=== PATIENT | male | born 1980 | race African-American/Black ===

== ENCOUNTER 2018-04-08 10:34 | Emergency (ER) | END 2018-04-08 13:03 | disposition home or self-care (01) ==

== ENCOUNTER 2018-04-25 11:29 | Emergency (ER) | END 2018-04-25 14:10 | disposition home or self-care (01) ==

== ENCOUNTER 2018-05-20 17:55 | Emergency (ER) | END 2018-05-20 19:46 | disposition home or self-care (01) ==

== ENCOUNTER → 2018-08-03 | Emergency (ER) | payer OTHER ==
[~2018-08-03] VITALS: Ht 182.9 cm; Wt 91.8 kg
[~2018-08-03] MED LIST: PRED20TA PO; predniSONE 20 MG TAB PO ONE
[2018-08-03 20:51] VITALS: Ht 182.9 cm; Wt 91.8 kg
[2018-08-03 21:26] VITALS: BP 140/75; PULSE 89; RESP 20
--- NOTE | 2018-08-03 22:20 | ERD ---
ER Documentation Chief Complaint Chief Complaint PT reports vision changes started 2 days ago pt has MS HPI Patient is a 38-year-old male who presents with blurry vision for the past 2 days. The patient has had MS for about 1 year. He wears glasses. Upon review of old medical records this is the patient's fourth visit to the ER since March 2018 for similar symptoms. He has had no treatment as of yet. He does have a primary doctor and a neurologist. ROS All systems reviewed and are negative except as per history of present illness. Medications Home Meds Active Scripts Prednisone* (Prednisone*) 20 Mg Tab, 60 MG PO DAILY for 4 Days, TAB Prov:STAR MISHRA MD 08/03/18 Allergies Allergies: Coded Allergies: No Known Allergy (Unverified , 04/25/18) PMhx/Soc Positive for MS History of Surgery: No Hx Alcohol Use: No Hx Substance Use: No Hx Tobacco Use: No Smoking Status: Never smoker FmHx Family History: diabetes Physical Exam Vitals Vital Signs Date Temp Pulse Resp B/P (MAP) Pulse Ox O2 O2 Flow FiO2 Time Delivery Rate 08/03/18 98.7 89 20 140/75 99 Room Air 21:26 (96) 08/03/18 98.3 71 16 156/80 99 20:51 (105) Physical Exam Const: No acute distress Head: Atraumatic Eyes: Normal Conjunctiva ENT: Normal External Ears, Nose and Mouth. Neck: Full range of motion. No meningismus. Resp: Clear to auscultation bilaterally Cardio: Regular rate and rhythm, no murmurs Abd: Soft, non tender, non distended. Normal bowel sounds Skin: No petechiae or rashes Back: No midline or flank tenderness Ext: No cyanosis, or edema Neur: Awake and alert Psych: Normal Mood and Affect Results 24 hrs Current Medications Medications Dose Sig/Debbie Start Time Status Last (Trade) Ordered Route PRN Stop Time Admin Dose Reason Admin Prednisone 60 mg ONCE ONCE 08/03/18 DC 08/03/18 (Prednisone) PO 21:30 21:23 08/03/18 21:31 Procedures/MDM Patient is a 38-year-old male who presents with acute MS flare and possibly optic neuritis. The patient will be given 5 days of prednisone and the first dose was given in the emergency department. The patient is well-appearing without other issues. I see no signs of stroke or intracranial hemorrhage. I do not believe he requires further workup in the hospital or admission. The patient will be discharged but will need to follow-up with his neurologist for further treatment. Departure Diagnosis: Primary Impression: Multiple sclerosis Condition: Fair Patient Instructions: Understanding Multiple Sclerosis (MS) Referrals: Your Neurologist Additional Instructions: SPECIALIST: YOU HAVE A MEDICAL CONDITION WHICH REQUIRES YOU TO SEE A SPECIALIST WITHIN THE NEXT 1-2 DAYS. PLEASE FOLLOW UP WITH YOUR PRIMARY PHYSICIAN FOR REFFERAL.IF YOU DO NOT HAVE A PRIMARY CARE PHYSICIAN AND/OR YOU CAN NOT AFFORD TO SEE A PHYSICIAN THE FOLLOWING RESOURCES HAVE BEEN SUPPLIED TO YOU. IT IS YOUR RESPONSIBILITY TO BE SEEN BY THE SPECIALIST STAR MISHRA MD Aug 03, 2018 22:20
== END | disposition home or self-care (01) ==
LOC: E/R 20:42
DX: G35 Multiple sclerosis (principal)
CPT/HCPCS: J7512; Z7502; 99283

== ENCOUNTER 2018-08-08 10:16 | Inpatient (IN) | payer OTHER ==
[~2018-08-08] VITALS: Ht 182.9 cm; Wt 87.6 kg
[~2018-08-08 10:16] MED LIST changes: -predniSONE 20 MG TAB PO ONE
[2018-08-08 11:22] VITALS: Ht 182.9 cm; Wt 87.6 kg
[2018-08-08] MEDS ORDERED: SOD CHLORIDE 0.9% 1,000 ML IV STA (13:26)
--- NOTE | 2018-08-08 13:34 | ERD ---
ER Documentation Chief Complaint Chief Complaint PT CAME FOR IV STEROID AND ADMISSION FOR RELAPSED MS. HPI 38-year-old otherwise healthy man presents with continued blurry vision to the left eye despite using oral prednisone as an outpatient, he states he has had blurry vision for about 1 week. He did go to a neurologist for follow-up but was referred back to this hospital for readmission for 5 days of IV methylprednisolone. After speaking to the neurologist this seems recent MRIs have revealed multiple MS lesions throughout the brain and spinal cord and given his continued blurry vision recommendation was for immediate IV methylprednisolone therapy. Patient denies weakness in his arms or legs, no gait ataxia, no slurred speech, no headache, no vomiting, no chest pain or shortness of breath. ROS All systems reviewed and are negative except as per history of present illness. Medications Home Meds Active Scripts Prednisone* (Prednisone*) 20 Mg Tab, 60 MG PO DAILY for 4 Days, TAB Prov:STAR MISHRA MD 08/03/18 Allergies Allergies: Coded Allergies: No Known Allergy (Unverified , 04/25/18) PMhx/Soc MS History of Surgery: No Hx Miscellaneous Medical Probl: Yes (MS) Hx Alcohol Use: No Hx Substance Use: No Hx Tobacco Use: No Smoking Status: Never smoker FmHx Family History: No diabetes Physical Exam Vitals Vital Signs Date Temp Pulse Resp B/P (MAP) Pulse Ox O2 O2 Flow FiO2 Time Delivery Rate 08/08/18 98.7 59 18 163/84 100 11:22 (110) Physical Exam Const: No acute distress Head: Atraumatic Eyes: Normal Conjunctiva ENT: Normal External Ears, Nose and Mouth. Neck: Full range of motion. No meningismus. Resp: Clear to auscultation bilaterally Cardio: Regular rate and rhythm, no murmurs Abd: Soft, non tender, non distended. Normal bowel sounds Skin: No petechiae or rashes Back: No midline or flank tenderness Ext: No cyanosis, or edema Neur: Awake and alert Psych: Normal Mood and Affect Result Diagram: 08/08/18 1344 Results 24 hrs Laboratory Tests Test 08/08/18 13:44 White Blood Count 10.0 10^3/ul Red Blood Count 5.56 10^6/ul Hemoglobin 16.1 g/dl Hematocrit 48.0 % Mean Corpuscular Volume 86.3 fl Mean Corpuscular Hemoglobin 29.0 pg Mean Corpuscular Hemoglobin Concent 33.5 g/dl Red Cell Distribution Width 13.1 % Platelet Count 208 10^3/UL Mean Platelet Volume 11.8 fl Immature Granulocytes % 0.300 % Neutrophils % 72.5 % Lymphocytes % 17.9 % Monocytes % 8.9 % Eosinophils % 0.1 % Basophils % 0.3 % Nucleated Red Blood Cells % 0.0 /100WBC Immature Granulocytes # 0.030 10^3/ul Neutrophils # 7.3 10^3/ul Lymphocytes # 1.8 10^3/ul Monocytes # 0.9 10^3/ul Eosinophils # 0.0 10^3/ul Basophils # 0.0 10^3/ul Nucleated Red Blood Cells # 0.0 10^3/ul Current Medications Medications Dose Sig/Debbie Start Time Status Last (Trade) Ordered Route PRN Stop Time Admin Dose Reason Admin Sodium 1,000 ml @ Q1H STAT 08/08/18 08/08/18 Chloride 1,000 mls/hr IV 13:26 13:43 08/08/18 14:25 Procedures/MDM I spoke to the patient's neurologist regarding the patient's symptoms and he stated a recent MRI of the brain and spinal cord revealed multiple active suspected MS lesions throughout the brain as well as the cervical and thoracic spinal cord. Dr. St feels this is active severe MS relapse and may also represent optic neuritis and recommended 5 days of IV methylprednisolone therapy if JACE and RF tests are negative. as well as CT imaging of the chest. He recommended against outpatient therapy and oral prednisone. Patient's neurologist is Dr. Salvador St IV line was established patient was placed on air conditioning unit tester rhythm strip revealed a sinus bradycardia at 50 bpm with upright P and T waves. Patient was afebrile I administered 1 L normal saline IV, further imaging and therapy deferred to admitting team. EKG performed, read by me revealed a sinus bradycardia 52 bpm, normal axis, narrow QRS complex, no concerning ST elevations or depressions noted CBC and electrolytes were normal, coagulation profile normal. Patient admitted to [facility] for continued medical management, imaging, neurology consultation Departure Diagnosis: Primary Impression: Multiple sclerosis exacerbation Additional Impression: Visual disturbance Condition: MARY Berg MD Aug 08, 2018 13:34
--- NOTE | 2018-08-08 14:58 | HP ---
Date/Time of Note Date/Time of Note DATE: 08/08/18 TIME: 14:58 Assessment/Plan VTE Prophylaxis Pharmacological prophylaxis: NA/contraindicated Pharm contraindication: low risk/ambulating Lines/Catheters IV C[facility]from [facility]): Saline Lock Assessment/Plan Hospital Course 38-year-old male with past medical history of multiple sclerosis who was sent by his primary neurologist for hospital admission for possible multiple sclerosis relapse. 1. Suspected multiple sclerosis flare. -Inpatient monitoring. -Obtain neurology consult. -IV steroid dosing will be deferred to neurology. -Obtain basic lab works including ESR, JACE titer, angiotensin-converting enzyme, rheumatoid factor, and Lyme disease antibody. 2. Acute kidney injury. -Unknown baseline creatinine. -Monitor BUN and creatinine closely. -Hold nephrotoxic medications. Plan: The patient will be admitted to inpatient medical surgical floor. The patient will be started on a regular diet. The patient will be started on DVT prophylaxis and gastrointestinal prophylaxis (patient to be started on steroids). The patient will remain a full code. Activities will be as tolerated. The rest of the patient's management will be based on the clinical course, inputs from consultants, and the results of diagnostic studies. The patient was seen in collaboration with Dr. Linder. Result Diagram: 08/08/18 1344 08/08/18 1344 Results 24hrs Laboratory Tests Test 08/08/18 13:44 White Blood Count 10.0 Red Blood Count 5.56 Hemoglobin 16.1 Hematocrit 48.0 Mean Corpuscular Volume 86.3 Mean Corpuscular Hemoglobin 29.0 Mean Corpuscular Hemoglobin Concent 33.5 Red Cell Distribution Width 13.1 Platelet Count 208 Mean Platelet Volume 11.8 H Immature Granulocytes % 0.300 Neutrophils % 72.5 Lymphocytes % 17.9 Monocytes % 8.9 Eosinophils % 0.1 Basophils % 0.3 Nucleated Red Blood Cells % 0.0 Immature Granulocytes # 0.030 Neutrophils # 7.3 Lymphocytes # 1.8 Monocytes # 0.9 Eosinophils # 0.0 Basophils # 0.0 Nucleated Red Blood Cells # 0.0 Erythrocyte Sedimentation Rate 1 Prothrombin Time 13.6 Prothrombin Time Ratio 1.1 INR International Normalized Ratio 1.03 Activated Partial Thromboplast Time 22.1 L Sodium Level 140 Potassium Level 3.7 Chloride Level 99 Carbon Dioxide Level 30 Anion Gap 11 Blood Urea Nitrogen 14 Creatinine 1.54 H Est Glomerular Filtrat Rate mL/min > 60 Glucose Level 98 Calcium Level 9.8 Total Bilirubin 0.8 Direct Bilirubin 0.00 Indirect Bilirubin 0.8 Aspartate Amino Transf (AST/SGOT) 40 Alanine Aminotransferase (ALT/SGPT) 42 Alkaline Phosphatase 77 Total Protein 8.1 Albumin 4.6 Globulin 3.50 H Albumin/Globulin Ratio 1.31 Lipase 63 Rheumatoid Factor Screen NEGATIVE HPI/ROS Admit Date/Time Admit Date/Time Hx of Present Illness This is a 38-year-old male with recently diagnosed multiple sclerosis. The patient was told by his neurologist Dr.Mehdi St to go to the emergency room with a prescription showing suspected MS relapse. The patient denied any double vision. The patient is complaining of some right eye pain and amblyopia. The patient denied any fatigue, ataxia, sensory loss, or paresthesias. The patient denied any fevers or chills. In the emergency room, the patient's lab work was insignificant except the patient's creatinine was 1.54. The patient had an initial blood pressure 163/84. The patient denied any fevers, chills, nausea, vomiting, or any other constitutional symptoms. The patient denied any syncope or presyncope. He denied any chest pain. The patient works as a physical therapist. The patient has started experiencing symptoms of visual disturbance and motor weakness specifically right upper extremity spastic movements for the past 2 years. As per the patient, he was recently diagnosed with multiple sclerosis. The patient verbalized that he had an MRI of the brain and cervical spine recently. ROS Constitutional: no complaints Eyes: pain (Right eye) ENT: no complaints Respiratory: no complaints Cardiovascular: no complaints Gastrointestinal: no complaints Genitourinary: no complaints Musculoskeletal: no complaints Skin: no complaints Neurologic: no complaints Endocrine: no complaints Lymphatic: no complaints Psychological: no complaints Immunologic: no complaints PMH/Family/Social Past Medical History 1. MS. 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 Alcohol Use: none Smoking Status: Never smoker Drug Use: none Exam/Review of Systems Vital Signs Vitals Vital Signs Date Temp Pulse Resp B/P (MAP) Pulse Ox O2 O2 Flow FiO2 Time Delivery Rate 08/08/18 98.7 59 18 163/84 100 11:22 (110) Exam Exam General: Adequately build 38 year-old male lying in bed in no apparent distress. HEENT: Normocephalic, atraumatic. Eyes: Anicteric sclerae, conjunctivae clear. ENT: Nasal septum midline, oral mucosa moist. Neck supple, no JVD noticed. Respiratory: Bilaterally clear breath sounds. No use of accessory muscles of respiration. No adventitious breath sounds. Cardiovascular: S1, S2 heard. Regular rate and rhythm. Abdomen: Soft, nontender, and nondistended. Bowel sounds positive in all 4 quadrants. Genitourinary: Deferred. Extremities: No cyanosis, no clubbing, no edema. Peripheral pulses palpable. Neurologic: Cranial nerves II through XII grossly intact. The patient is awake, alert, and oriented. Skin: Normal skin turgor. No skin rashes. KOREY RAE NP Aug 08, 2018 14:58
[2018-08-08] MEDS ORDERED: ACETAMINOPHEN 325 MG TAB PO PRN (16:00)
[2018-08-08] MEDS ORDERED: hydrALAzine 20 MG INJ IV PRN (16:00)
[2018-08-08] MEDS ORDERED: NACL 0.9% 3 ML SYG IV SCH (16:00)
[2018-08-08] MEDS ORDERED: ONDANSETRON 4 MG INJ IV PRN (16:00)
[2018-08-08 16:39] VITALS: BP 142/70; RESP 16
--- NOTE | 2018-08-08 16:59 | CONS ---
Assessment/Plan Assessment/Plan Hospital Course 38 yo M with hx of MS who presents for evaluation of progressive R eye blurred vision x 1 week... for which neurology is consulted. This could be clinically consistent with an acute MS flare. Pseudoexacerbation is, though, not yet excluded. P: MRI brain and orbits c/ c/o contrast for further characterization Solumedrol 1g IV x 5-7 days pending the above Add CXR, UA, TSH, B12 Await JACE, UDS Cont medical management per primary Will follow clinically, to recommend neurologic studies, as necessary Consultation Date/Type/Reason Admit Date/Time Type of Consult Neurology Reason for Consultation r/o MS flare Requesting Provider: KOREY RAE NP Date/Time of Note DATE: 08/08/18 TIME: 16:37 Hx of Present Illness 38 yo M with hx of MS who presented to the ED for evaluation of R eye blurred vision x 1 week. History was obtained from pt and chart review. The pt currently endorses R eye blurred vision. He denies any respiratory symptoms, SOB, recent illness, or any headache, weakness, dizziness, numbness/tingling, gait troubles, speech issues. It is additionally elsewhere noted: HPI 38-year-old otherwise healthy man presents with continued blurry vision to the left eye despite using oral prednisone as an outpatient, he states he has had blurry vision for about 1 week. He did go to a neurologist for follow-up but was referred back to this hospital for readmission for 5 days of IV methylprednisolone. After speaking to the neurologist this seems recent MRIs have revealed multiple MS lesions throughout the brain and spinal cord and given his continued blurry vision recommendation was for immediate IV methylprednisolone therapy. Patient denies weakness in his arms or legs, no gait ataxia, no slurred speech, no headache, no vomiting, no chest pain or shortness of breath. negative unless noted otherwise in HPI Exam/Review of Systems Exam Vitals Vital Signs Date Temp Pulse Resp B/P (MAP) Pulse Ox O2 O2 Flow FiO2 Time Delivery Rate 08/08/18 98.7 59 18 163/84 100 11:22 (110) Exam PE: Gen Appearance: No Apparent Distress HEENT: Normocephalic Cardiovascular: Regular rate Lungs: Clear bilaterally Abdomen: Soft Extremities: Dry NE: The patient was alert and oriented. Language was normal. Fund of knowledge was normal. Pupils were equal and reactive to light. There was no afferent pupillary defect. Visual monson were diminished in the R eye. Funduscopic examination was limited. Extra-ocular movements were full. Ptosis was absent. There was no nystagmus. Facial sensation was normal. Face was symmetric with normal strength. Hearing was intact. Palate movements were normal. Neck strength was normal. There was n ormal tongue bulk and speed of movement. Tone was normal. Muscle bulk was normal. I did not see fasciculations. Arms and legs were strong. Vibration sensation was normal. Temperature and pinprick sensation was normal. Rapid alternating movements were normal. There was no dysmetria. There was no i ntention tremor. Gait was steady. Arm and leg reflexes were 2+ and symmetric. Peraza's sign was absent. Plantar responses were flexor. Results Result Diagram: 08/08/18 1344 08/08/18 1344 Results 24hrs Laboratory Tests Test 08/08/18 13:44 White Blood Count 10.0 Red Blood Count 5.56 Hemoglobin 16.1 Hematocrit 48.0 Mean Corpuscular Volume 86.3 Mean Corpuscular Hemoglobin 29.0 Mean Corpuscular Hemoglobin Concent 33.5 Red Cell Distribution Width 13.1 Platelet Count 208 Mean Platelet Volume 11.8 H Immature Granulocytes % 0.300 Neutrophils % 72.5 Lymphocytes % 17.9 Monocytes % 8.9 Eosinophils % 0.1 Basophils % 0.3 Nucleated Red Blood Cells % 0.0 Immature Granulocytes # 0.030 Neutrophils # 7.3 Lymphocytes # 1.8 Monocytes # 0.9 Eosinophils # 0.0 Basophils # 0.0 Nucleated Red Blood Cells # 0.0 Erythrocyte Sedimentation Rate 1 Prothrombin Time 13.6 Prothrombin Time Ratio 1.1 INR International Normalized Ratio 1.03 Activated Partial Thromboplast Time 22.1 L Sodium Level 140 Potassium Level 3.7 Chloride Level 99 Carbon Dioxide Level 30 Anion Gap 11 Blood Urea Nitrogen 14 Creatinine 1.54 H Est Glomerular Filtrat Rate mL/min > 60 Glucose Level 98 Hemoglobin A1c 5.3 Calcium Level 9.8 Total Bilirubin 0.8 Direct Bilirubin 0.00 Indirect Bilirubin 0.8 Aspartate Amino Transf (AST/SGOT) 40 Alanine Aminotransferase (ALT/SGPT) 42 Alkaline Phosphatase 77 Total Protein 8.1 Albumin 4.6 Globulin 3.50 H Albumin/Globulin Ratio 1.31 Lipase 63 Rheumatoid Factor Screen NEGATIVE Medications Medication Current Medications IV Flush (NS 3 ml) 3 ml PER PROTOCOL IV ; Start 08/08/18 at 16:00 Ondansetron HCl (Zofran Inj) 4 mg Q6H PRN IV NAUSEA/VOMITING; Start 08/08/18 at 16:00 Acetaminophen (Tylenol Tab) 650 mg Q6H PRN PO .PAIN 1-3 OR TEMP; Start 08/08/18 at 16:00 Hydralazine HCl (Apresoline) 10 mg Q6H PRN IV SBP>160; Start 08/08/18 at 16:00 Pantoprazole (Protonix Tab) 40 mg BID@06,18 PO ; Start 08/08/18 at 18:00 Past Medical History reviewed Home Meds Discontinued Scripts Prednisone* (Prednisone*) 20 Mg Tab, 60 MG PO DAILY for 4 Days, TAB Prov:STAR MISHRA MD 08/03/18 Medications Current Medications IV Flush (NS 3 ml) 3 ml PER PROTOCOL IV ; Start 08/08/18 at 16:00 Ondansetron HCl (Zofran Inj) 4 mg Q6H PRN IV NAUSEA/VOMITING; Start 08/08/18 at 16:00 Acetaminophen (Tylenol Tab) 650 mg Q6H PRN PO .PAIN 1-3 OR TEMP; Start 08/08/18 at 16:00 Hydralazine HCl (Apresoline) 10 mg Q6H PRN IV SBP>160; Start 08/08/18 at 16:00 Pantoprazole (Protonix Tab) 40 mg BID@06,18 PO ; Start 08/08/18 at 18:00 Allergies: Coded Allergies: No Known Allergy (Unverified , 08/08/18) Past Surgical History reviewed Past Surgical Hx: no surgical history Social History reviewed Alcohol Use: none Smoking Status: Never smoker Drug Use: none GENIA LÓPEZ NP Aug 08, 2018 16:49
[2018-08-08] MEDS: PANTOPRAZOLE (EC) 40 MG TAB PO SCH (18:47)
[2018-08-08 20:37] VITALS: BP 157/80; PULSE 58; RESP 16
[2018-08-08] MEDS: METHYLPRED. NA SUCC 1,000 MG in DEXTROSE 5% 50 ML IVPB SCH (20:59)
[2018-08-09 02:00] VITALS: BP 132/60; PULSE 63; RESP 18
[2018-08-09] MEDS: PANTOPRAZOLE (EC) 40 MG TAB PO SCH ×2 (06:22→17:02)
[2018-08-09 08:00] VITALS: BP 146/72; PULSE 52; RESP 19
[2018-08-09] MEDS: METHYLPRED. NA SUCC 1,000 MG in DEXTROSE 5% 50 ML IVPB SCH (08:01)
--- NOTE | 2018-08-09 13:40 | CONS ---
Assessment/Plan Assessment/Plan Hospital Course 38 yo M with hx of MS who presents for evaluation of progressive R eye blurred vision x 1 week... for which neurology is consulted. Clinically consistent with an acute MS flare. MRI brain is notable for scattered hyperintensities c/w demyelination, some of which are enhancing...to suggest active disease. P: Cont Solumedrol 1g IV x 5-7 days, pending Sx improvement Cont protonix for GI ppx Medical management per primary Will follow clinically Consultation Date/Type/Reason Admit Date/Time Aug 08, 2018 at 13:44 Type of Consult Neurology Reason for Consultation r/o MS flare Requesting Provider: KOREY RAE NP Date/Time of Note DATE: 08/09/18 TIME: 13:39 24 HR Interval Summary Free Text/Dictation Continues medsurg monitoring. Day 2 of solumedrol IV. Pt states that his vision is starting to improve. Exam Vital Signs Vitals Vital Signs Date Temp Pulse Resp B/P (MAP) Pulse Ox O2 O2 Flow FiO2 Time Delivery Rate 08/09/18 97.6 52 19 146/72 98 Room Air 08:00 (96) Intake and Output 08/08/18 08/08/18 08/09/18 1515:00 23:00 07:00 IntakeIntake Total 50 ml BalanceBalance 50 ml Exam PE: Gen Appearance: No Apparent Distress HEENT: Normocephalic Cardiovascular: Regular rate Lungs: Clear bilaterally Abdomen: Soft Extremities: Dry NE: The patient was alert and oriented. Language was normal. Fund of knowledge was normal. Pupils were equal and reactive to light. There was no afferent pupillary defect. Visual monson were diminished in the R eye. Funduscopic examination was limited. Extra-ocular movements were full. Ptosis was absent. There was no nystagmus. Facial sensation was normal. Face was symmetric with normal strength. Hearing was intact. Palate movements were normal. Neck strength was normal. There was normal tongue bulk and speed of movement. Tone was normal. Muscle bulk was normal. I did not see fasciculations. Arms and legs were strong. Vibration sensation was normal. Temperature and pinprick sensation was normal. Rapid alternating movements were normal. There was no dysmetria. There was no intention tremor. Gait was steady. Arm and leg reflexes were 2+ and symmetric. Peraza's sign was absent. Plantar responses were flexor. GENIA LÓPEZ NP Aug 09, 2018 13:40 MALIK GALLEGO Aug 09, 2018 15:55
[2018-08-09 14:00] VITALS: BP 149/74; PULSE 68; RESP 18
--- NOTE | 2018-08-09 14:48 | PN ---
Date/Time of Note Date/Time of Note DATE: 08/09/18 TIME: 14:46 Assessment/Plan VTE Prophylaxis Risk score (from Ns)>0 risk: 0 SCD applied (from Ns): Yes Pharmacological prophylaxis: NA/contraindicated Pharm contraindication: low risk/ambulating Lines/Catheters IV C[facility]ter [facility] ([facility]): Peripheral IV Assessment/Plan Hospital Course SUBJECTIVE: Denies any complaints. OBJECTIVE: Physical Exam General: Adequately build 38 year-old male lying in bed in no apparent distress. HEENT: Normocephalic, atraumatic. Eyes: Anicteric sclerae, conjunctivae clear. ENT: Nasal septum midline, oral mucosa moist. Neck supple, no JVD noticed. Respiratory: Bilaterally clear breath sounds. No use of accessory muscles of respiration. No adventitious breath sounds. Cardiovascular: S1, S2 heard. Regular rate and rhythm. Abdomen: Soft, nontender, and nondistended. Bowel sounds positive in all 4 quadrants. Genitourinary: Deferred. Extremities: No cyanosis, no clubbing, no edema. Peripheral pulses palpable. Neurologic: Cranial nerves II through XII grossly intact. The patient is awake, alert, and oriented. Skin: Normal skin turgor. No skin rashes. Labs & Vitals per chart ASSESSMENT & PLAN 38-year-old male with past medical history of multiple sclerosis who was sent by his primary neurologist for hospital admission for possible multiple sclerosis relapse. 1. Multiple sclerosis flare. -Brain MRI showing progressive extensive periventricular/subcortical T2 hyperintensities suggesting demyelination in this patient multiple sclerosis -Being followed by neurology. -On high-dose IV steroids. 2. Acute kidney injury. -Unknown baseline creatinine. -Monitor BUN and creatinine closely. -Obtain nephrology consult. 3. Fluids, electrolytes, and nutrition. -Regular diet. 4. DVT prophylaxis. -Bilateral SCDs. 5. Plan. -Continue high-dose IV steroids -Obtain nephrology consult. The patient was seen in collaboration with Dr. Linder. Result Diagram: 08/09/18 0604 08/09/18 0604 Results 24hrs Laboratory Tests Test 08/08/18 18:00 08/09/18 06:04 Urine Color YELLOW Urine Clarity CLEAR Urine pH 7.0 Urine Specific [place] 1.019 Urine Ketones NEGATIVE Urine Nitrite NEGATIVE Urine Bilirubin NEGATIVE Urine Urobilinogen NEGATIVE Urine Leukocyte Esterase NEGATIVE Urine Hemoglobin NEGATIVE Urine Glucose NEGATIVE Urine Total Protein NEGATIVE Urine Opiates Screen Negative Urine Barbiturates Negative Urine Amphetamines Screen Negative Urine Benzodiazepines Screen Negative Urine Cocaine Screen Negative Urine Cannabinoids Negative White Blood Count 7.1 # Red Blood Count 5.34 Hemoglobin 15.8 Hematocrit 46.0 Mean Corpuscular Volume 86.1 Mean Corpuscular Hemoglobin 29.6 Mean Corpuscular Hemoglobin Concent 34.3 Red Cell Distribution Width 13.1 Platelet Count 203 Mean Platelet Volume 12.4 H Immature Granulocytes % 0.300 Neutrophils % 93.1 H Lymphocytes % 5.8 L Monocytes % 0.8 Eosinophils % 0.0 Basophils % 0.0 Nucleated Red Blood Cells % 0.0 Immature Granulocytes # 0.020 Neutrophils # 6.6 Lymphocytes # 0.4 L Monocytes # 0.1 L Eosinophils # 0.0 Basophils # 0.0 Nucleated Red Blood Cells # 0.0 Sodium Level 139 Potassium Level 5.1 Chloride Level 102 Carbon Dioxide Level 25 Anion Gap 12 Blood Urea Nitrogen 21 H Creatinine 1.90 H Est Glomerular Filtrat Rate mL/min 48 L Glucose Level 130 Calcium Level 9.3 Phosphorus Level 3.5 Magnesium Level 2.0 Total Bilirubin 0.2 Direct Bilirubin 0.00 Indirect Bilirubin 0.2 Aspartate Amino Transf (AST/SGOT) 29 Alanine Aminotransferase (ALT/SGPT) 40 Alkaline Phosphatase 65 Total Protein 7.0 # Albumin 3.9 Globulin 3.10 Albumin/Globulin Ratio 1.25 Triglycerides Level 58 Cholesterol Level 172 LDL Cholesterol, Calculated 91 HDL Cholesterol 69 H Cholesterol/HDL Ratio 2.4 Vitamin B12 Level 431 Thyroid Stimulating Hormone (TSH) 0.230 L Exam/Review of Systems Exam Vitals Vital Signs Date Temp Pulse Resp B/P (MAP) Pulse Ox O2 O2 Flow FiO2 Time Delivery Rate 08/09/18 97.6 52 19 146/72 98 Room Air 08:00 (96) Intake and Output 08/08/18 08/08/18 08/09/18 1515:00 23:00 07:00 IntakeIntake Total 50 ml BalanceBalance 50 ml Results Results 24hrs Laboratory Tests Test 08/08/18 18:00 08/09/18 06:04 Urine Color YELLOW Urine Clarity CLEAR Urine pH 7.0 Urine Specific [place] 1.019 Urine Ketones NEGATIVE Urine Nitrite NEGATIVE Urine Bilirubin NEGATIVE Urine Urobilinogen NEGATIVE Urine Leukocyte Esterase NEGATIVE Urine Hemoglobin NEGATIVE Urine Glucose NEGATIVE Urine Total Protein NEGATIVE Urine Opiates Screen Negative Urine Barbiturates Negative Urine Amphetamines Screen Negative Urine Benzodiazepines Screen Negative Urine Cocaine Screen Negative Urine Cannabinoids Negative White Blood Count 7.1 # Red Blood Count 5.34 Hemoglobin 15.8 Hematocrit 46.0 Mean Corpuscular Volume 86.1 Mean Corpuscular Hemoglobin 29.6 Mean Corpuscular Hemoglobin Concent 34.3 Red Cell Distribution Width 13.1 Platelet Count 203 Mean Platelet Volume 12.4 H Immature Granulocytes % 0.300 Neutrophils % 93.1 H Lymphocytes % 5.8 L Monocytes % 0.8 Eosinophils % 0.0 Basophils % 0.0 Nucleated Red Blood Cells % 0.0 Immature Granulocytes # 0.020 Neutrophils # 6.6 Lymphocytes # 0.4 L Monocytes # 0.1 L Eosinophils # 0.0 Basophils # 0.0 Nucleated Red Blood Cells # 0.0 Sodium Level 139 Potassium Level 5.1 Chloride Level 102 Carbon Dioxide Level 25 Anion Gap 12 Blood Urea Nitrogen 21 H Creatinine 1.90 H Est Glomerular Filtrat Rate mL/min 48 L Glucose Level 130 Calcium Level 9.3 Phosphorus Level 3.5 Magnesium Level 2.0 Total Bilirubin 0.2 Direct Bilirubin 0.00 Indirect Bilirubin 0.2 Aspartate Amino Transf (AST/SGOT) 29 Alanine Aminotransferase (ALT/SGPT) 40 Alkaline Phosphatase 65 Total Protein 7.0 # Albumin 3.9 Globulin 3.10 Albumin/Globulin Ratio 1.25 Triglycerides Level 58 Cholesterol Level 172 LDL Cholesterol, Calculated 91 HDL Cholesterol 69 H Cholesterol/HDL Ratio 2.4 Vitamin B12 Level 431 Thyroid Stimulating Hormone (TSH) 0.230 L Medications Medication Current Medications IV Flush (NS 3 ml) 3 ml PER PROTOCOL IV ; Start 08/08/18 at 16:00 Ondansetron HCl (Zofran Inj) 4 mg Q6H PRN IV NAUSEA/VOMITING Last administered on 08/08/18at 16:53; Admin Dose 4 MG; Start 08/08/18 at 16:00 Acetaminophen (Tylenol Tab) 650 mg Q6H PRN PO .PAIN 1-3 OR TEMP; Start 08/08/18 at 16:00 Hydralazine HCl (Apresoline) 10 mg Q6H PRN IV SBP>160; Start 08/08/18 at 16:00 Pantoprazole (Protonix Tab) 40 mg BID@06,18 PO Last administered on 08/09/18at 06:22; Admin Dose 40 MG; Start 08/08/18 at 18:00 Methylprednisolone Sodium Succinate 1000 mg/Dextrose 50 ml @ 100 mls/hr DAILY IVPB Last administered on 08/09/18at 08:01; Admin Dose 100 MLS/HR; Start 08/08/18 at 17:00; Stop 08/13/18 at 17:00 KOREY RAE NP Aug 09, 2018 14:48
[2018-08-09] MEDS: SOD CHLORIDE 0.9% 1,000 ML IV SCH (17:13)
[2018-08-09 19:55] VITALS: BP 135/75; PULSE 64; RESP 16
[2018-08-10 01:50] VITALS: BP 124/60; PULSE 69; RESP 16
--- NOTE | 2018-08-10 02:11 | CONS ---
DATE OF ADMISSION: 08/08/2018 DATE OF CONSULTATION: CHIEF COMPLAINT: Acute kidney injury. PHYSICIAN REQUESTING CONSULT: Dr. Menendez. HISTORY OF PRESENT ILLNESS: This is a 38-year-old male with a past medical history of recently diagn osed multiple sclerosis who presents to the outpatient hospital for evaluation of her MS flare. The patient states he was recently diagnosed with MS approximately 2 to 3 weeks ago. The patient's sympt oms included right eye pain with diplopia. The patient denies any fatigue, ataxia or sensory loss. The patient presented to his outside neurologist's office with this incident. The patient was recomm ended to come to the emergency room for evaluation. Upon arrival, the patient noted to have elevated creatinine at 1.54 mg/dL. The patient was hypertensive. In the emergency room, the patient was sta rted on IV steroids and admitted to telemetry for evaluation. In terms of patient's renal history, the patient states that he has had normal renal function. He st ates that he has been taking a creatine supplementation for working out which he attributes to his el evation in creatinine. The patient denies any rashes, any hemoptysis, hematemesis or hematochezia. PAST MEDICAL HISTORY: Recently diagnosed multiple sclerosis. FAMILY HISTORY: No family history of kidney disease. SOCIAL HISTORY: Does not drink, smoke, or do drugs. MEDICATIONS: Have been reviewed. REVIEW OF SYSTEMS: A 14-point review of systems conducted. Pertinent positives stated in HPI, other jones negative. PAST SURGICAL HISTORY: None. PHYSICAL EXAMINATION: VITAL SIGNS: Blood pressure is 135/75, respirations 16, pulse 74, temperature 98.3. HEENT: Head is normocephalic. NECK: Supple. HEART: Regular rate. LUNGS: Show diminished breath sounds at the base. ABDOMEN: Soft, nontender to palpation without rebound or guarding. EXTREMITIES: Negative for clubbing, cyanosis, no edema. DERMATOLOGIC: No rashes. MUSCULOSKELETAL: No joint effusions. NEUROLOGIC: No focal deficits. The patient's medications have been reviewed. LABORATORY DATA: Chest x-ray shows no evidence of cardiopulmonary disease. MRI of the brain was rev iewed. Laboratory data shows a sodium of 139, BUN 21, creatinine 1.90. White count 7.1, hemoglobin 15.8, platelet count is 203. Urinalysis is negative, JACE rheumatoid factor negative, Lyme disease pe nding. ASSESSMENT AND PLAN: This is a 38-year-old male who presents with: 1. Nonoliguric acute kidney injury with unknown baseline creatinine. Etiology of acute kidney injur y is unclear, possibly due to hemodynamics. Questionable spurious elevation in creatinine due to rec ent protein supplementation with creatine. Recommendation at this point is to repeat UA with microan alysis, check urine electrolytes and quantify the patient's proteinuria. Will check a renal ultrasou nd to evaluate renal parenchyma. Will give the patient a fluid challenge with normal saline. Would otherwise continue current treatment plans, supportive care, renally dose all medication. 2. Mineral bone disorder, monitor calcium and phosphorus levels. 3. Multiple sclerosis, acute flare. Continue current medical management. Continue IV steroids. Thank you, Shon, for this interesting consult. It will be a pleasure to follow patient with you t hrdrewout the hospital course. Dictated By: STEFANY COREY DO NR/NTS Conf#: [id number] DID#: [id number] CC: LEW WEST MD;*EndCC*
[2018-08-10] MEDS: SOD CHLORIDE 0.9% 1,000 ML IV SCH ×2 (05:53→14:05)
[2018-08-10] MEDS: PANTOPRAZOLE (EC) 40 MG TAB PO SCH ×2 (05:53→18:21)
[2018-08-10 07:48] VITALS: BP 128/60; PULSE 65; RESP 14
--- NOTE | 2018-08-10 08:06 | PN ---
Date/Time of Note Date/Time of Note DATE: 08/10/18 TIME: 08:06 Assessment/Plan VTE Prophylaxis Risk score (from Ns)>0 risk: 0 SCD applied (from Ns): Yes Pharmacological prophylaxis: NA/contraindicated Pharm contraindication: low risk/ambulating Lines/Catheters IV Catheter Type (from [facility]): Peripheral IV Assessment/Plan Hospital Course SUBJECTIVE: Verbalized that the right eye vision is improving. OBJECTIVE: Physical Exam General: Adequately build 38 year-old male lying in bed in no apparent distress. HEENT: Normocephalic, atraumatic. Eyes: Anicteric sclerae, conjunctivae clear. ENT: Nasal septum midline, oral mucosa moist. Neck supple, no JVD noticed. Respiratory: Bilaterally clear breath sounds. No use of accessory muscles of respiration. No adventitious breath sounds. Cardiovascular: S1, S2 heard. Regular rate and rhythm. Abdomen: Soft, nontender, and nondistended. Bowel sounds positive in all 4 quadrants. Genitourinary: Deferred. Extremities: No cyanosis, no clubbing, no edema. Peripheral pulses palpable. Neurologic: Cranial nerves II through XII grossly intact. The patient is awake, alert, and oriented. Skin: Normal skin turgor. No skin rashes. Labs & Vitals per chart ASSESSMENT & PLAN 38-year-old male with past medical history of multiple sclerosis who was sent by his primary neurologist for hospital admission for possible multiple sclerosis relapse. 1. Multiple sclerosis flare. -Brain MRI showing progressive extensive periventricular/subcortical T2 hyperintensities suggesting demyelination in this patient multiple sclerosis -Being followed by neurology. -On high-dose IV steroids. 2. Acute kidney injury. -Unknown baseline creatinine. -Monitor BUN and creatinine closely. -Nephrology following. 3. Fluids, electrolytes, and nutrition. -Regular diet. 4. DVT prophylaxis. -Bilateral SCDs. 5. Plan. -Continue high-dose IV steroids -Leukocytosis noted, probably steroid induced. The patient was seen in collaboration with Dr. Linder. Result Diagram: 08/10/1814 08/10/18 0614 Results 24hrs Laboratory Tests Test 08/10/18 03:15 08/10/18 06:14 Urine Color YELLOW Urine Clarity CLEAR Urine pH 6.0 Urine Specific [place] 1.028 Urine Ketones NEGATIVE Urine Nitrite NEGATIVE Urine Bilirubin NEGATIVE Urine Urobilinogen NEGATIVE Urine Leukocyte Esterase NEGATIVE Urine Hemoglobin NEGATIVE Urine Random Creatinine 299.76 Urine Random Sodium Pending Urine Glucose NEGATIVE Urine Total Protein NEGATIVE White Blood Count 20.2 #H Red Blood Count 4.80 Hemoglobin 14.2 Hematocrit 41.4 L Mean Corpuscular Volume 86.3 Mean Corpuscular Hemoglobin 29.6 Mean Corpuscular Hemoglobin Concent 34.3 Red Cell Distribution Width 12.9 Platelet Count 194 Mean Platelet Volume 12.7 H Immature Granulocytes % 0.700 H Neutrophils % Lymphocytes % Monocytes % Eosinophils % Basophils % Nucleated Red Blood Cells % 0.0 Immature Granulocytes # 0.140 H Neutrophils # Lymphocytes # Monocytes # Eosinophils # Basophils # Nucleated Red Blood Cells # Sodium Level 140 Potassium Level 4.3 Chloride Level 105 Carbon Dioxide Level 26 Anion Gap 9 Blood Urea Nitrogen 19 Creatinine 1.49 H Est Glomerular Filtrat Rate mL/min > 60 Glucose Level 133 Calcium Level 9.2 Exam/Review of Systems Exam Vitals Vital Signs Date Temp Pulse Resp B/P (MAP) Pulse Ox O2 O2 Flow FiO2 Time Delivery Rate 08/10/18 98.2 65 14 128/60 100 Room Air 07:48 (82) Intake and Output 08/09/18 08/09/18 08/10/18 1414:59 22:59 06:59 IntakeIntake Total 1210 ml 380 ml 600 ml BalanceBalance 1210 ml 380 ml 600 ml Results Results 24hrs Laboratory Tests Test 08/10/18 03:15 08/10/18 06:14 Urine Color YELLOW Urine Clarity CLEAR Urine pH 6.0 Urine Specific [place] 1.028 Urine Ketones NEGATIVE Urine Nitrite NEGATIVE Urine Bilirubin NEGATIVE Urine Urobilinogen NEGATIVE Urine Leukocyte Esterase NEGATIVE Urine Hemoglobin NEGATIVE Urine Random Creatinine 299.76 Urine Random Sodium Pending Urine Glucose NEGATIVE Urine Total Protein NEGATIVE White Blood Count 20.2 #H Red Blood Count 4.80 Hemoglobin 14.2 Hematocrit 41.4 L Mean Corpuscular Volume 86.3 Mean Corpuscular Hemoglobin 29.6 Mean Corpuscular Hemoglobin Concent 34.3 Red Cell Distribution Width 12.9 Platelet Count 194 Mean Platelet Volume 12.7 H Immature Granulocytes % 0.700 H Neutrophils % Lymphocytes % Monocytes % Eosinophils % Basophils % Nucleated Red Blood Cells % 0.0 Immature Granulocytes # 0.140 H Neutrophils # Lymphocytes # Monocytes # Eosinophils # Basophils # Nucleated Red Blood Cells # Sodium Level 140 Potassium Level 4.3 Chloride Level 105 Carbon Dioxide Level 26 Anion Gap 9 Blood Urea Nitrogen 19 Creatinine 1.49 H Est Glomerular Filtrat Rate mL/min > 60 Glucose Level 133 Calcium Level 9.2 Medications Medication Current Medications IV Flush (NS 3 ml) 3 ml PER PROTOCOL IV ; Start 08/08/18 at 16:00 Ondansetron HCl (Zofran Inj) 4 mg Q6H PRN IV NAUSEA/VOMITING Last administered on 08/08/18at 16:53; Admin Dose 4 MG; Start 08/08/18 at 16:00 Acetaminophen (Tylenol Tab) 650 mg Q6H PRN PO .PAIN 1-3 OR TEMP; Start 08/08/18 at 16:00 Hydralazine HCl (Apresoline) 10 mg Q6H PRN IV SBP>160; Start 08/08/18 at 16:00 Pantoprazole (Protonix Tab) 40 mg BID@06,18 PO Last administered on 08/10/18at 05:53; Admin Dose 40 MG; Start 08/08/18 at 18:00 Methylprednisolone Sodium Succinate 1000 mg/Dextrose 50 ml @ 100 mls/hr DAILY IVPB Last administered on 08/09/18at 08:01; Admin Dose 100 MLS/HR; Start 08/08/18 at 17:00; Stop 08/13/18 at 17:00 Sodium Chloride 1,000 ml @ 50 mls/hr Q20H IV Last administered on 08/10/18at 05:53; Admin Dose 50 MLS/HR; Start 08/09/18 at 17:30 KOREY RAE NP Aug 10, 2018 08:06
[2018-08-10] MEDS: METHYLPRED. NA SUCC 1,000 MG in DEXTROSE 5% 50 ML IVPB SCH (09:03)
--- NOTE | 2018-08-10 09:17 | CONS ---
Consult Date/Type/Reason Admit Date/Time Aug 08, 2018 at 13:44 Initial Consult Date Requesting Provider: KOREY RAE NP Date/Time of Note DATE: 08/10/18 TIME: 09:14 Subjective 38-year-old male with a past medical history of recently diagnosed multiple sclerosis who presents to the outpatient hospital for evaluation of her MS flare. The patient states he was recently diagnosed with MS approximately 2 to 3 weeks ago. The patient's symptoms included right eye pain with diplopia. The patient denies any fatigue, ataxia or sensory loss. The patient presented to his outside neurologist's office with this incident. The patient was recommended to come to the emergency room for evaluation. Upon arrival, the patient noted to have elevated creatinine at 1.54 mg/dL. The patient was hypertensive. In the emergency room, the patient was started on IV steroids and admitted to telemetry for evaluation. In terms of patient's renal history, the patient states that he has had normal renal function. He states that he has been taking a creatine supplementation for working out which he attributes to his elevation in creatinine. The patient denies any rashes, any hemoptysis, hematemesis or hematochezia. continues good uo since admission. poc reviewd with dr. merritt. PHYSICAL EXAMINATION: HEENT: Head is normocephalic. NECK: Supple. HEART: Regular rate. LUNGS: Show diminished breath sounds at the base. ABDOMEN: Soft, nontender to palpation without rebound or guarding. EXTREMITIES: Negative for clubbing, cyanosis, no edema. DERMATOLOGIC: No rashes. MUSCULOSKELETAL: No joint effusions. NEUROLOGIC: No focal deficits. The patient's medications have been reviewed. Objective Vitals Vital Signs Date Temp Pulse Resp B/P (MAP) Pulse Ox O2 O2 Flow FiO2 Time Delivery Rate 08/10/18 98.2 65 14 128/60 100 Room Air 07:48 (82) Intake and Output 08/09/18 08/09/18 08/10/18 1515:00 23:00 07:00 IntakeIntake Total 1210 ml 380 ml 600 ml BalanceBalance 1210 ml 380 ml 600 ml Results/Medications Result Diagram: 08/10/18 0614 08/10/18 0614 Results 24 hrs Laboratory Tests Test 08/10/18 03:15 08/10/18 06:14 Urine Color YELLOW Urine Clarity CLEAR Urine pH 6.0 Urine Specific [place] 1.028 Urine Ketones NEGATIVE Urine Nitrite NEGATIVE Urine Bilirubin NEGATIVE Urine Urobilinogen NEGATIVE Urine Leukocyte Esterase NEGATIVE Urine Hemoglobin NEGATIVE Urine Random Creatinine 299.76 Urine Random Sodium < 13 L Urine Glucose NEGATIVE Urine Total Protein NEGATIVE White Blood Count 20.2 #H Red Blood Count 4.80 Hemoglobin 14.2 Hematocrit 41.4 L Mean Corpuscular Volume 86.3 Mean Corpuscular Hemoglobin 29.6 Mean Corpuscular Hemoglobin Concent 34.3 Red Cell Distribution Width 12.9 Platelet Count 194 Mean Platelet Volume 12.7 H Immature Granulocytes % 0.700 H Neutrophils % Lymphocytes % Monocytes % Eosinophils % Basophils % Nucleated Red Blood Cells % 0.0 Immature Granulocytes # 0.140 H Neutrophils # Lymphocytes # Monocytes # Eosinophils # Basophils # Nucleated Red Blood Cells # Sodium Level 140 Potassium Level 4.3 Chloride Level 105 Carbon Dioxide Level 26 Anion Gap 9 Blood Urea Nitrogen 19 Creatinine 1.49 H Est Glomerular Filtrat Rate mL/min > 60 Glucose Level 133 Calcium Level 9.2 Phosphorus Level 4.2 Magnesium Level 2.1 Home Meds Discontinued Scripts Prednisone* (Prednisone*) 20 Mg Tab, 60 MG PO DAILY for 4 Days, TAB Prov:STAR MISHRA MD 08/03/18 Medications Current Medications IV Flush (NS 3 ml) 3 ml PER PROTOCOL IV ; Start 08/08/18 at 16:00 Ondansetron HCl (Zofran Inj) 4 mg Q6H PRN IV NAUSEA/VOMITING Last administered on 08/08/18at 16:53; Admin Dose 4 MG; Start 08/08/18 at 16:00 Acetaminophen (Tylenol Tab) 650 mg Q6H PRN PO .PAIN 1-3 OR TEMP; Start 08/08/18 at 16:00 Hydralazine HCl (Apresoline) 10 mg Q6H PRN IV SBP>160; Start 08/08/18 at 16:00 Pantoprazole (Protonix Tab) 40 mg BID@06,18 PO Last administered on 08/10/18at 05:53; Admin Dose 40 MG; Start 08/08/18 at 18:00 Methylprednisolone Sodium Succinate 1000 mg/Dextrose 50 ml @ 100 mls/hr DAILY IVPB Last administered on 08/10/18at 09:03; Admin Dose 100 MLS/HR; Start 08/08/18 at 17:00; Stop 08/13/18 at 17:00 Sodium Chloride 1,000 ml @ 50 mls/hr Q20H IV Last administered on 08/10/18at 05:53; Admin Dose 50 MLS/HR; Start 08/09/18 at 17:30 Assessment/Plan Hospital Course (Demo Recall) 1. Nonoliguric acute kidney injury with unknown baseline creatinine. Etiology of acute kidney injury is unclear, possibly due to hemodynamics. improved with volume challenge - FENa <1 suggestive of prerenal conditons - Will check a renal ultrasound to evaluate renal parenchyma. Will give the patient a fluid challenge with normal saline. - continue current treatment plans, supportive care, renally dose all medication. 2. Mineral bone disorder, monitor calcium and phosphorus levels. 3. Multiple sclerosis, acute flare. Continue current medical management. Continue IV steroids. POLO BOTELLO MD Aug 10, 2018 09:17
--- NOTE | 2018-08-10 10:47 | CONS ---
Assessment/Plan Assessment/Plan Hospital Course 38 yo M with hx of MS who presents for evaluation of progressive R eye blurred vision x 1 week... for which neurology is consulted. Clinically consistent with an acute MS flare. MRI brain is notable for scattered hyperintensities c/w demyelination, some of which are enhancing...to suggest active disease. P: Cont Solumedrol 1g IV x 5-7 days total, pending Sx improvement Cont protonix for GI ppx Medical management per primary Will follow clinically Consultation Date/Type/Reason Admit Date/Time Aug 08, 2018 at 13:44 Type of Consult Neurology Reason for Consultation r/o MS flare Requesting Provider: KOREY RAE NP Date/Time of Note DATE: 08/10/18 TIME: 10:47 24 HR Interval Summary Free Text/Dictation Continues medsurg. Pt states that R eye is continuing to improve Exam Vital Signs Vitals Vital Signs Date Temp Pulse Resp B/P (MAP) Pulse Ox O2 O2 Flow FiO2 Time Delivery Rate 08/10/18 98.2 65 14 128/60 100 Room Air 07:48 (82) Intake and Output 08/09/18 08/09/18 08/10/18 1515:00 23:00 07:00 IntakeIntake Total 1210 ml 380 ml 600 ml BalanceBalance 1210 ml 380 ml 600 ml Exam PE: Gen Appearance: No Apparent Distress HEENT: Normocephalic Cardiovascular: Regular rate Lungs: Clear bilaterally Abdomen: Soft Extremities: Dry NE: The patient was alert and oriented. Language was normal. Fund of knowledge was normal. Pupils were equal and reactive to light. There was no afferent pupillary defect. Visual monson were diminished in the R eye. Funduscopic examination was limited. Extra-ocular movements were full. Ptosis was absent. There was no nystagmus. Facial sensation was normal. Face was symmetric with normal strength. Hearing was intact. Palate movements were normal. Neck strength was normal. There was normal tongue bulk and speed of movement. Tone was normal. Muscle bulk was normal. I did not see fasciculations. Arms and legs were strong. Vibration sensation was normal. Temperature and pinprick sensation was normal. Rapid alternating movements were normal. There was no dysmetria. There was no intention tremor. Gait was steady. Arm and leg reflexes were 2+ and symmetric. Peraza's sign was absent. Plantar responses were flexor. GENIA LÓPEZ NP Aug 10, 2018 10:47 MALIK GALLEGO Aug 10, 2018 11:41
[2018-08-11 01:45] VITALS: BP 123/57; PULSE 67; RESP 20
[2018-08-11] MEDS: SOD CHLORIDE 0.9% 1,000 ML IV SCH (04:11)
[2018-08-11] MEDS: PANTOPRAZOLE (EC) 40 MG TAB PO SCH ×2 (05:28→17:04)
--- NOTE | 2018-08-11 06:30 | PN ---
Date/Time of Note Date/Time of Note DATE: 08/11/18 TIME: 06:29 Assessment/Plan VTE Prophylaxis Risk score (from Ns)>0 risk: 0 SCD applied (from Ns): No SCD contraindicated: other Pharmacological prophylaxis: NA/contraindicated Pharm contraindication: low risk/ambulating Lines/Catheters IV Catheter Type (from [facility]): Peripheral IV Assessment/Plan Hospital Course SUBJECTIVE: Verbalized that the right eye vision is improving. OBJECTIVE: Physical Exam General: Adequately build 38 year-old male lying in bed in no apparent distress. HEENT: Normocephalic, atraumatic. Eyes: Anicteric sclerae, conjunctivae clear. ENT: Nasal septum midline, oral mucosa moist. Neck supple, no JVD noticed. Respiratory: Bilaterally clear breath sounds. No use of accessory muscles of respiration. No adventitious breath sounds. Cardiovascular: S1, S2 heard. Regular rate and rhythm. Abdomen: Soft, nontender, and nondistended. Bowel sounds positive in all 4 qu adrants. Genitourinary: Deferred. Extremities: No cyanosis, no clubbing, no edema. Peripheral pulses palpable. Neurologic: Cranial nerves II through XII grossly intact. The patient is awake, alert, and oriented. Skin: Normal skin turgor. No skin rashes. Labs & Vitals per chart ASSESSMENT & PLAN 38-year-old male with past medical history of multiple sclerosis who was sent by his primary neurologist for hospital admission for possible multiple sclerosis relapse. 1. Multiple sclerosis flare. -Brain MRI showing progressive extensive periventricular/subcortical T2 hyperin tensities suggesting demyelination in this patient multiple sclerosis -Being followed by neurology. -On high-dose IV steroids. 2. Acute kidney injury. -Unknown baseline creatinine. -Monitor BUN and creatinine closely. -Nephrology following. 3. Fluids, electrolytes, and nutrition. -Regular diet. 4. DVT prophylaxis. -Bilateral SCDs. 5. Plan. -Continue high-dose IV steroids -Leukocytosis noted, probably steroid induced. The patient was seen in collaboration with Dr. Linder. Result Diagram: 08/11/18 0550 08/10/18 0614 Results 24hrs Laboratory Tests Test 08/11/18 05:50 White Blood Count 20.5 H Red Blood Count 4.87 Hemoglobin 14.2 Hematocrit 42.0 Mean Corpuscular Volume 86.2 Mean Corpuscular Hemoglobin 29.2 Mean Corpuscular Hemoglobin Concent 33.8 Red Cell Distribution Width 13.2 Platelet Count 192 Mean Platelet Volume 12.4 H Immature Granulocytes % 1.400 H Neutrophils % 89.6 H Lymphocytes % 3.6 L Monocytes % 5.3 Eosinophils % 0.0 Basophils % 0.1 Nucleated Red Blood Cells % 0.0 Immature Granulocytes # 0.290 H Neutrophils # 18.4 H Lymphocytes # 0.7 L Monocytes # 1.1 H Eosinophils # 0.0 Basophils # 0.0 Nucleated Red Blood Cells # 0.0 Exam/Review of Systems Exam Vitals Vital Signs Date Temp Pulse Resp B/P (MAP) Pulse Ox O2 O2 Flow FiO2 Time Delivery Rate 08/11/18 98.1 67 20 123/57 95 Room Air 01:45 (79) Intake and Output 08/10/18 08/10/18 08/11/18 1414:59 22:59 06:59 IntakeIntake Total 63 ml BalanceBalance 63 ml Results Results 24hrs Laboratory Tests Test 08/11/18 05:50 White Blood Count 20.5 H Red Blood Count 4.87 Hemoglobin 14.2 Hematocrit 42.0 Mean Corpuscular Volume 86.2 Mean Corpuscular Hemoglobin 29.2 Mean Corpuscular Hemoglobin Concent 33.8 Red Cell Distribution Width 13.2 Platelet Count 192 Mean Platelet Volume 12.4 H Immature Granulocytes % 1.400 H Neutrophils % 89.6 H Lymphocytes % 3.6 L Monocytes % 5.3 Eosinophils % 0.0 Basophils % 0.1 Nucleated Red Blood Cells % 0.0 Immature Granulocytes # 0.290 H Neutrophils # 18.4 H Lymphocytes # 0.7 L Monocytes # 1.1 H Eosinophils # 0.0 Basophils # 0.0 Nucleated Red Blood Cells # 0.0 Medications Medication Current Medications IV Flush (NS 3 ml) 3 ml PER PROTOCOL IV ; Start 08/08/18 at 16:00 Ondansetron HCl (Zofran Inj) 4 mg Q6H PRN IV NAUSEA/VOMITING Last administered on 08/08/18at 16:53; Admin Dose 4 MG; Start 08/08/18 at 16:00 Acetaminophen (Tylenol Tab) 650 mg Q6H PRN PO .PAIN 1-3 OR TEMP; Start 08/08/18 at 16:00 Hydralazine HCl (Apresoline) 10 mg Q6H PRN IV SBP>160; Start 08/08/18 at 16:00 Pantoprazole (Protonix Tab) 40 mg BID@06,18 PO Last administered on 08/11/18at 05:28; Admin Dose 40 MG; Start 08/08/18 at 18:00 Methylprednisolone Sodium Succinate 1000 mg/Dextrose 50 ml @ 100 mls/hr DAILY IVPB Last administered on 08/10/18at 09:03; Admin Dose 100 MLS/HR; Start 08/08/18 at 17:00; Stop 08/13/18 at 17:00 Sodium Chloride 1,000 ml @ 50 mls/hr Q20H IV Last administered on 08/11/18at 04:11; Admin Dose 50 MLS/HR; Start 08/09/18 at 17:30 KOREY RAE NP Aug 11, 2018 06:30
[2018-08-11 07:30] VITALS: BP 129/73; PULSE 56; RESP 20
--- NOTE | 2018-08-11 08:07 | CONS ---
Consult Date/Type/Reason Admit Date/Time Aug 08, 2018 at 13:44 Initial Consult Date Requesting Provider: KOREY RAE NP Date/Time of Note DATE: 08/11/18 TIME: 08:05 Subjective 38-year-old male with a past medical history of recently diagnosed multiple sclerosis who presents to the outpatient hospital for evaluation of her MS flare. The patient states he was recently diagnosed with MS approximately 2 to 3 weeks ago. The patient's symptoms included right eye pain with diplopia. The patient denies any fatigue, ataxia or sensory loss. The patient presented to his outside neurologist's office with this incident. The patient was recommended to come to the emergency room for evaluation. Upon arrival, the patient noted to have elevated creatinine at 1.54 mg/dL. The patient was hypertensive. In the emergency room, the patient was started on IV steroids and admitted to telemetry for evaluation. In terms of patient's renal history, the patient states that he has had normal renal function. He states that he has been taking a creatine supplementation for working out which he attributes to his elevation in creatinine. The patient denies any rashes, any hemoptysis, hematemesis or hematochezia. continues good uo since admission. says vision is improving as well. poc reviewd with dr. merritt. PHYSICAL EXAMINATION: HEENT: Head is normocephalic. NECK: Supple. HEART: Regular rate. LUNGS: Show diminished breath sounds at the base. ABDOMEN: Soft, nontender to palpation without rebound or guarding. EXTREMITIES: Negative for clubbing, cyanosis, no edema. DERMATOLOGIC: No rashes. MUSCULOSKELETAL: No joint effusions. NEUROLOGIC: No focal deficits. The patient's medications have been reviewed. Objective Vitals Vital Signs Date Temp Pulse Resp B/P (MAP) Pulse Ox O2 O2 Flow FiO2 Time Delivery Rate 08/11/18 98.1 67 20 123/57 95 Room Air 01:45 (79) Intake and Output 08/10/18 08/10/18 08/11/18 1515:00 23:00 07:00 IntakeIntake Total 763 ml BalanceBalance 763 ml Results/Medications Result Diagram: 08/11/18 0550 08/11/18 0550 Results 24 hrs Laboratory Tests Test 08/11/18 05:50 White Blood Count 20.5 H Red Blood Count 4.87 Hemoglobin 14.2 Hematocrit 42.0 Mean Corpuscular Volume 86.2 Mean Corpuscular Hemoglobin 29.2 Mean Corpuscular Hemoglobin Concent 33.8 Red Cell Distribution Width 13.2 Platelet Count 192 Mean Platelet Volume 12.4 H Immature Granulocytes % 1.400 H Neutrophils % 89.6 H Lymphocytes % 3.6 L Monocytes % 5.3 Eosinophils % 0.0 Basophils % 0.1 Nucleated Red Blood Cells % 0.0 Immature Granulocytes # 0.290 H Neutrophils # 18.4 H Lymphocytes # 0.7 L Monocytes # 1.1 H Eosinophils # 0.0 Basophils # 0.0 Nucleated Red Blood Cells # 0.0 Sodium Level 136 Potassium Level 4.0 Chloride Level 105 Carbon Dioxide Level 25 Anion Gap 6 Blood Urea Nitrogen 18 Creatinine 1.51 H Est Glomerular Filtrat Rate mL/min > 60 Glucose Level 121 Calcium Level 8.8 Phosphorus Level 4.0 Magnesium Level 2.1 Home Meds Discontinued Scripts Prednisone* (Prednisone*) 20 Mg Tab, 60 MG PO DAILY for 4 Days, TAB Prov:STAR MISHRA MD 08/03/18 Medications Current Medications IV Flush (NS 3 ml) 3 ml PER PROTOCOL IV ; Start 08/08/18 at 16:00 Ondansetron HCl (Zofran Inj) 4 mg Q6H PRN IV NAUSEA/VOMITING Last administered on 08/08/18at 16:53; Admin Dose 4 MG; Start 08/08/18 at 16:00 Acetaminophen (Tylenol Tab) 650 mg Q6H PRN PO .PAIN 1-3 OR TEMP; Start 08/08/18 at 16:00 Hydralazine HCl (Apresoline) 10 mg Q6H PRN IV SBP>160; Start 08/08/18 at 16:00 Pantoprazole (Protonix Tab) 40 mg BID@06,18 PO Last administered on 08/11/18at 05:28; Admin Dose 40 MG; Start 08/08/18 at 18:00 Methylprednisolone Sodium Succinate 1000 mg/Dextrose 50 ml @ 100 mls/hr DAILY IVPB Last administered on 08/10/18at 09:03; Admin Dose 100 MLS/HR; Start 08/08/18 at 17:00; Stop 08/13/18 at 17:00 Sodium Chloride 1,000 ml @ 50 mls/hr Q20H IV Last administered on 08/11/18at 04:11; Admin Dose 50 MLS/HR; Start 08/09/18 at 17:30 Assessment/Plan Hospital Course (Demo Recall) 1. Nonoliguric acute kidney injury with unknown baseline creatinine. Etiology of acute kidney injury is unclear, possibly due to hemodynamics. improved with volume challenge. may be at baseline. - FENa <1 suggestive of prerenal condition - Will check a renal ultrasound to evaluate renal parenchyma.sp fluid challe nge with normal saline. will heplock as appears euvolemic. - continue current treatment plans, supportive care, renally dose all medication. 2. Mineral bone disorder, monitor calcium and phosphorus levels. 3. Multiple sclerosis, acute flare. Continue current medical management. Continue IV steroids. POLO BOTELLO MD Aug 11, 2018 08:07
--- NOTE | 2018-08-11 08:44 | CONS ---
Assessment/Plan Assessment/Plan Hospital Course 38 yo M with hx of MS who presents for evaluation of progressive R eye blurred vision x 1 week... for which neurology is consulted. Clinically consistent with an acute MS flare. MRI brain is notable for scattered hyperintensities c/w demyelination, some of which are enhancing...to suggest active disease. P: Cont Solumedrol 1g IV x 5-7 days total, pending Sx improvement Cont protonix for GI ppx Medical management per primary Will follow clinically Consultation Date/Type/Reason Admit Date/Time Aug 08, 2018 at 13:44 Type of Consult Neurology Reason for Consultation vision change Requesting Provider: KOREY RAE NP Date/Time of Note DATE: 08/11/18 TIME: 08:44 24 HR Interval Summary Free Text/Dictation Continues acute care Exam Vital Signs Vitals Vital Signs Date Temp Pulse Resp B/P (MAP) Pulse Ox O2 O2 Flow FiO2 Time Delivery Rate 08/11/18 98.2 56 20 129/73 97 Room Air 07:30 (91) Intake and Output 08/10/18 08/10/18 08/11/18 1515:00 23:00 07:00 IntakeIntake Total 763 ml BalanceBalance 763 ml MALIK GALLEGO Aug 11, 2018 08:44
[2018-08-11] MEDS: METHYLPRED. NA SUCC 1,000 MG in DEXTROSE 5% 50 ML IVPB SCH (09:07)
[2018-08-11 14:00] VITALS: BP 137/74; PULSE 58; RESP 20
[2018-08-11 20:00] VITALS: BP 144/76; PULSE 61; RESP 19
[2018-08-12 02:25] VITALS: BP 129/67; PULSE 69; RESP 18
[2018-08-12] MEDS: PANTOPRAZOLE (EC) 40 MG TAB PO SCH ×2 (05:58→17:50)
[2018-08-12 07:44] VITALS: BP 144/78; PULSE 49; RESP 16
[2018-08-12] MEDS: METHYLPRED. NA SUCC 1,000 MG in DEXTROSE 5% 50 ML IVPB SCH (08:11)
[2018-08-12 13:52] VITALS: BP 150/74; PULSE 64; RESP 16
--- NOTE | 2018-08-12 13:59 | DS ---
Date/Time of Note Date/Time of Note DATE: 08/12/18 TIME: 13:55 Discharge Summary Admission/Discharge Info Admit Date/Time Aug 08, 2018 at 13:44 Discharge Date/Time Patient Condition: Good Consults Dr Leal. Procedures MR Brain/orbits with and without contrast. CLINICAL INDICATION: Optic neuritis. Multiple sclerosis. TECHNIQUE: Multiplanar multisequence MRI of the brain and orbits was performed before and after the intravenous administration of 10 cc of ProHance. COMPARISON: There are no similar studies submitted for comparison. Noncontrast CT of the head from April 25, 2018. FINDINGS: No orbital mass is identified. The bilateral optic nerves are normal in size and signal. There is no abnormal optic nerve enhancement. The optic chiasm is normal in size and signal without abnormal enhancement. The extra-ocular muscles are normal in size. The pituitary is normal in size. There is minimal generalized cerebral volume loss. There are progressive extensive ovoid and periventricular and subcortical T2 hyperintensities predominately within the callososeptal interface suggesting demyelination. Corpus callosal lesions are also present. There are bilateral basal ganglia as well as left brachium pontis and left lateral pontine lesions. There are some T1 hypointense lesions also noted suggesting myelin loss. There is incomplete enhancement as well as peripheral enhancement within the left centrum semiovale lesion, right centrum semiovale lesion, left parietal grider bcortical, left temporal parietal, right globus pallidus, right inferior frontal, right inferior frontal, and left brachium pontis lesions suggesting active demyelination. There is no acute infarction. There is no intracranial hemorrhage or extra- axial fluid collection. There is no midline shift. The normal intracranial, intravascular flow voids are preserved. There is a C2 intramedullary lesion also noted which is incompletely evaluated The visualized paranasal sinuses are well aerated. There is no destructive osseous lesion. IMPRESSION: 1. Progressive extensive periventricular/subcortical T2 hyperintensities suggesting demyelination in this patient multiple sclerosis. There are also right basal ganglia, corpus callosum, left lateral pontine, and left brachium pontis lesions. There are a few enhancing lesion suggesting active demyelination as detailed above. 2. The bilateral optic nerves are normal in signal without abnormal enhancement. 3. Minimal generalized cerebral volume loss. 4. No acute infarction or intracranial hemorrhage. 5. There is a C2 intramedullary lesion which is incompletely evaluated suggesting demyelination. Dedicated MRI of the cervical spine with and without contrast may be performed as clinically warranted. Further findings as detailed above. Hx of Present Illness 38-year-old gentleman admitted for flareup of my possible mulitple sclerosis by Neuro/ Dr St. Hospital Course 38-year-old gentleman admitted and evaluated for multiple sclerosis flare. Seen by neurology. Therapy included 5 days of Solu-Medrol. Presently stable and fit for discharge. Still having some neurological symptoms, but I did go through the treatment plan including follow-ups with our patient and he is aware of care plan. Seen by nephrology for elevated creatinine. Patient on creatinine supplements prior to arrival. Patient works as a physical therapist/educator. Will probably benefit from follow-up with nephrology and monitoring and avoiding extra creatinine supplements. Creat 1.4-1.5. Ultrasound did not show any obstruction. Home Meds Discontinued Scripts Prednisone* (Prednisone*) 20 Mg Tab, 60 MG PO DAILY for 4 Days, TAB Prov:STAR MISHRA MD 08/03/18 Primary Care Provider Not On Staff Doctor Time spent on discharge: > 30 minutes Pending Labs Laboratory Tests Test 08/12/18 05:52 White Blood Count 14.2 10^3/ul (4.8-10.8) Red Blood Count 4.84 10^6/ul (4.70-6.10) Hemoglobin 14.2 g/dl (14.0-18.0) Hematocrit 41.8 % (42.0-52.0) Mean Corpuscular Volume 86.4 fl (82.0-101.0) Mean Corpuscular Hemoglobin 29.3 pg (29.0-33.0) Mean Corpuscular Hemoglobin Concent 34.0 g/dl (32.0-37.0) Red Cell Distribution Width 13.2 % (11.5-14.5) Platelet Count 174 10^3/UL (140-415) Mean Platelet Volume 12.1 fl (7.4-10.4) Immature Granulocytes % 1.200 % (0.001-0.429) Neutrophils % 84.7 % (39.0-77.0) Lymphocytes % 6.9 % (15.0-51.0) Monocytes % 7.0 % (0.0-11.0) Eosinophils % 0.1 % (0.0-7.0) Basophils % 0.1 % (0.0-2.0) Nucleated Red Blood Cells % 0.0 /100WBC (0.0-0.0) Immature Granulocytes # 0.170 10^3/ul (0.0-0.031) Neutrophils # 12.0 10^3/ul (1.6-7.5) Lymphocytes # 1.0 10^3/ul (0.8-2.9) Monocytes # 1.0 10^3/ul (0.3-0.9) Eosinophils # 0.0 10^3/ul (0.0-0.5) Basophils # 0.0 10^3/ul (0.0-0.1) Nucleated Red Blood Cells # 0.0 10^3/ul (0.0-0.0) Sodium Level 140 mmol/L (135-144) Potassium Level 4.3 mmol/L (3.5-5.1) Chloride Level 105 mmol/L (97-110) Carbon Dioxide Level 28 mmol/L (21-31) Anion Gap 7 (5-13) Blood Urea Nitrogen 15 mg/dl (7-20) Creatinine 1.40 mg/dl (0.61-1.24) Est Glomerular Filtrat Rate mL/min > 60 mL/min (>60) Glucose Level 104 mg/dl (70-220) Calcium Level 8.9 mg/dl (8.4-10.2) Phosphorus Level 4.7 mg/dl (2.5-4.9) Magnesium Level 2.1 mg/dl (1.7-2.5) JO ANN WEEMS MD Aug 12, 2018 13:59
--- NOTE | 2018-08-12 14:01 | PDOCDIS ---
Discharge Instructions CONDITION [id number] Patient Condition: [id number] Stable HOME CARE INSTRUCTIONS: [id number] Diet Instructions: [id number] Regular ACTIVITY: [id number] Activity Restrictions: [id number] Slowly Increase Activity Do not Drive FOLLOW UP/APPOINTMENTS Follow-up Plan Primary 1wk. Dr St or Dr Leal 1-2wks Dr Quint[place]illa/ [facility]1-2wks. JO ANN WEEMS MD Aug 12, 2018 14:01
[2018-08-12 14:02] VITALS: BP 113/87; PULSE 89; RESP 16
[2018-08-12] MEDS ORDERED: ATEN-51 PO (14:06)
[2018-08-12] MEDS ORDERED: ACET325T33 PO (14:06)
[2018-08-12] MEDS ORDERED: PANT40TA4 PO (14:06)
--- NOTE | 2018-08-12 15:40 | PN ---
DATE: 08/12/2018 SUBJECTIVE: The patient is stable. No events overnight. OBJECTIVE: VITAL SIGNS: Blood pressure is 144/78, pulse 49, respirations 16, temperature 98.4. HEENT: Head is normocephalic. NECK: Supple. HEART: Regular rate. LUNGS: Show diminished breath sounds at base. ABDOMEN: Soft, nontender to palpation, rebound or guarding. EXTREMITIES: Negative for clubbing, cyanosis. No edema. DERMATOLOGIC: No rashes. MUSCULOSKELETAL: No joint effusions. NEUROLOGIC: No focal deficits. MEDICATIONS: Have been reviewed. LABORATORY DATA: Have been reviewed. The patient had a BUN of 15, creatinine 1.40. ASSESSMENT AND PLAN: 1. Nonoliguric acute kidney injury with unknown baseline creatinine. Etiology of acute kidney injur y is possibly secondary to hemodynamics. The patient's FENa was less than 1% consistent with possibl e prerenal etiology. The patient's renal function has improved with volume expansion. At this point , continue current treatment plans, supportive care, renally dose all meds. 2. Mineral bone disorder. Monitor calcium and phosphorus levels. 3. Multiple sclerosis with acute flare. Continue current medical management. Dictated By: STEFANY COREY DO NR/NTS Conf#: [id number] DID#: [id number] CC: JO ANN WEEMS MD; LEW WEST MD;*End*
--- NOTE | 2018-08-12 16:39 | CONS ---
Assessment/Plan Assessment/Plan Hospital Course 38 yo M with hx of MS who presents for evaluation of progressive R eye blurred vision x 1 week... for which neurology is consulted. Clinically consistent with an acute MS flare. MRI brain is notable for scattered hyperintensities c/w demyelination, some of which are enhancing...to suggest active disease. Now s/p Solumedrol 1g iv x 5 P: 12 week Predinose taper on d/c: 40mg x 3 days, 20 mg x 3 days, 10 mg x 3 days, 5 mg x 3 days.. Cont protonix for GI ppx Neurologically cleared for d/c Consultation Date/Type/Reason Admit Date/Time Aug 08, 2018 at 13:44 Type of Consult Neurology Reason for Consultation vision change Requesting Provider: KOREY REA NP Date/Time of Note DATE: 08/12/18 TIME: 16:37 24 HR Interval Summary Free Text/Dictation Continue acute care Exam Vital Signs Vitals Vital Signs Date Temp Pulse Resp B/P (MAP) Pulse Ox O2 O2 Flow FiO2 Time Delivery Rate 08/12/18 () 14:02 Intake and Output 08/11/18 08/11/18 08/12/18 1515:00 23:00 07:00 IntakeIntake Total 237 ml 1430 ml BalanceBalance 237 ml 1430 ml MALIK GALLEGO Aug 12, 2018 16:39
== END 2018-08-12 19:15 | disposition home or self-care (01) | DRG 59 ==
LOC: E/R 10:16 → 5EC 13:44
PROVIDERS: ADMIT Internal Medicine; ATTEND Internal Medicine
DX: G35 Multiple sclerosis (principal); N17.9 Acute kidney failure, unspecified
CPT/HCPCS: 36415; 70543; 70553; 71045; 76775; 80048; 80053; 80061; 80307; 81003; 82043; 82164; 82607; 83036; 83690; 83735; 84100; 84155; 84300; 84439; 84443; 85025; 85610; 85651; 85730; 86038; 86430; 86617; 93005; J2405; J2930; J7030